=== PATIENT | female | born 1965 | race Caucasian/White ===

== ENCOUNTER 2020-04-13 10:21 | Emergency (ER) | payer OTHER, SELFPAY ==
[~2020-04-13] VITALS: Ht 165.1 cm; Wt 81.6 kg
[2020-04-13 10:24] VITALS: Ht 165.1 cm; Wt 81.6 kg
[2020-04-13 12:00] LABS: BASOPHIL % 0.5 % (0.2-1.3); PLATELET COUNT 261 x10^3mcL (179-408)
[2020-04-13 12:02] LABS: CALCIUM 9.6 mg/dL (8.5-10.1); CARBON DIOXIDE 31.8 mmol/L (21-32); CHLORIDE SERUM 106 mmol/L (98-107); CREATININE SERUM 0.9 mg/dL (0.6-1.0); GFR1 > 60 mL/min; GLUCOSE SERUM 97 mg/dL (74-106); POTASSIUM SERUM 4.1 mmol/L (3.5-5.1); SODIUM SERUM 144 mmol/L (136-145)
[2020-04-13 12:06] LABS: ALBUMIN 3.8 g/dL (3.4-5.0); ALKALINE PHOSPHATASE 61 U/L (46-116); ALT/SGPT 28 U/L (14-59); AST/SGOT 17 U/L (15-37); BILIRUBIN TOTAL 0.27 mg/dL (0.20-1.00); TOTAL PROTEIN, SERUM 7.4 g/dL (6.4-8.2)
[2020-04-13 12:07] LABS: CHOLESTEROL 235 mg/dL (<200)
[2020-04-13 12:09] VITALS: BP 144/88
== END 2020-04-13 14:15 | disposition home or self-care (01) ==
LOC: ED 10:21
PROVIDERS: Specialist
DX: R51.9 Headache, unspecified (principal); M79.10 Myalgia, unspecified site; Z90.710 Acquired absence of both cervix and uterus; Z98.890 Other specified postprocedural states; Z20.828 Contact with and (suspected) exposure to other viral communicable diseases
CPT/HCPCS: G0480; J1885; U0003